=== PATIENT | female | born 1930 | race Two or more races ===

== ENCOUNTER 2019-02-18 12:31 | Emergency (ER) | payer OTHER ==
[~2019-02-18] VITALS: Ht 165.1 cm; Wt 59.0 kg
[~2019-02-18 12:31] MED LIST: ALPRAZOLAM ER0.5 MG PO; ASPIR 8181 MG PO; EFFEXOR XR75 MG PO; ENALAPRIL MALEA20 MG PO; IMDUR30 MG PO; LANTUS SOLOSTAR3 ML; LOPRESSOR5 MG/5 ML IV
[2019-02-18] MEDS ORDERED: SYNTHROID100 MCG PO (12:59)
== END 2019-02-18 17:11 | disposition home or self-care (01) ==
LOC: ER 12:31
DX: S00.03XA Contusion of scalp, initial encounter (principal); S00.12XA Contusion of left eyelid and periocular area, initial encounter; S00.11XA Contusion of right eyelid and periocular area, initial encounter; W18.09XA Striking against other object with subsequent fall, initial encounter; Y93.89 Activity, other specified; Y92.098 Other place in other non-institutional residence as the place of occurrence of the external cause; Y99.8 Other external cause status

== ENCOUNTER 2020-04-25 15:31 | Emergency (ER) | payer OTHER ==
[~2020-04-25] VITALS: Ht 160 cm; Wt 56.7 kg
[~2020-04-25 15:31] MED LIST changes: +SYNTHROID100 MCG PO
== END 2020-04-25 22:53 | disposition home or self-care (01) ==
LOC: ER 15:31
DX: S82.52XA Displaced fracture of medial malleolus of left tibia, initial encounter for closed fracture (principal); S92.412A Displaced fracture of proximal phalanx of left great toe, initial encounter for closed fracture; X50.0XXA Overexertion from strenuous movement or load, initial encounter; Y93.01 Activity, walking, marching and hiking; Y92.488 Other paved roadways as the place of occurrence of the external cause; Y99.8 Other external cause status

== ENCOUNTER 2021-05-01 18:38 | Inpatient (IN) | payer OTHER ==
[~2021-05-01] VITALS: Ht 162.6 cm; Wt 59.0 kg
[2021-05-01] MEDS ORDERED: DRAMAMINE LESS25 MG PO (18:43)
[2021-05-03] MEDS ORDERED: AMLODIPINE BESYL5 MG (08:38)
[2021-05-03] MEDS ORDERED: VITAMIN D3250 MCG (08:38)
[2021-05-17] MEDS ORDERED: AMLODIPINE BESYL5 MG PO (14:19)
[2021-05-17] MEDS ORDERED: LISINOPRIL20 MG PO (14:20)
[2021-05-17] MEDS ORDERED: ISOSORBIDE MONO30 MG PO (14:20)
[2021-05-17] MEDS ORDERED: LIPITOR40 MG PO (14:20)
[2021-05-17] MEDS ORDERED: INTESTINEX680 M1 PO (14:22)
[2021-05-17] MEDS ORDERED: LEVOTHYROXINE150 MCG PO (14:22)
[2021-05-17] MEDS ORDERED: TOPROL XL100 M1 PO (14:23)
== END 2021-05-17 20:51 | disposition home or self-care (01) | DRG 690 ==
LOC: ER 18:38 → MEDI 22:53
PROVIDERS: ADMIT Internal Medicine; ATTEND Internal Medicine
PROC: 4A12X4Z Monitoring of Cardiac Electrical Activity, External Approach (ICD-10-PCS; 2021-05-02)
PROC: BW28ZZZ Computerized Tomography (CT Scan) of Head (ICD-10-PCS; principal; 2021-05-05)
PROC: B24BZZZ Ultrasonography of Heart with Aorta (ICD-10-PCS; 2021-05-06)
PROC: CP261ZZ Tomographic (Tomo) Nuclear Medicine Imaging of Pelvis using Technetium 99m (Tc-99m) (ICD-10-PCS; 2021-05-11)
DX: N39.0 Urinary tract infection, site not specified (principal); E87.1 Hypo-osmolality and hyponatremia; N17.8 Other acute kidney failure; L03.113 Cellulitis of right upper limb; M46.28 Osteomyelitis of vertebra, sacral and sacrococcygeal region; R30.0 Dysuria; I10 Essential (primary) hypertension; E11.69 Type 2 diabetes mellitus with other specified complication; L89.159 Pressure ulcer of sacral region, unspecified stage; L08.9 Local infection of the skin and subcutaneous tissue, unspecified; B96.29 Other Escherichia coli [E. coli] as the cause of diseases classified elsewhere; B95.2 Enterococcus as the cause of diseases classified elsewhere; B96.89 Other specified bacterial agents as the cause of diseases classified elsewhere; Z79.4 Long term (current) use of insulin; E03.8 Other specified hypothyroidism; E86.0 Dehydration; D72.828 Other elevated white blood cell count; Z20.822 Contact with and (suspected) exposure to COVID-19
CPT/HCPCS: 72149

== ENCOUNTER 2021-08-27 17:39 | Inpatient (IN) | payer OTHER ==
[~2021-08-27] VITALS: Ht 165.1 cm; Wt 68.0 kg
[~2021-08-27 17:39] MED LIST changes: +AMLODIPINE BESYL5 MG; +AMLODIPINE BESYL5 MG PO; +DRAMAMINE LESS25 MG PO; +INTESTINEX680 M1 PO; +ISOSORBIDE MONO30 MG PO; +LEVOTHYROXINE150 MCG PO; +LIPITOR40 MG PO; +LISINOPRIL20 MG PO; +TOPROL XL100 M1 PO; +VITAMIN D3250 MCG
[2021-08-27] MEDS ORDERED: FENOFIBRATE160 MG (17:58)
[2021-08-27] MEDS ORDERED: AMBIEN5 MG (17:58)
[2021-08-27] MEDS ORDERED: INTESTINEX680 M1 (17:59)
[2021-08-27] MEDS ORDERED: FAMOTIDINE20 MG (17:59)
[2021-08-31] MEDS ORDERED: VITAMIN D3250 MCG (08:20)
[2021-09-17] MEDS ORDERED: TOPROL XL100 M1 PO (18:14)
[2021-09-17] MEDS ORDERED: INTESTINEX680 M1 PO (18:14)
[2021-09-17] MEDS ORDERED: AMLODIPINE BESYL5 MG PO (18:14)
[2021-09-17] MEDS ORDERED: LISINOPRIL20 MG PO (18:14)
[2021-09-17] MEDS ORDERED: LEVOFLOXACIN750 MG PO (18:14)
[2021-09-17] MEDS ORDERED: FAMOTIDINE20 MG PO (18:14)
[2021-09-17] MEDS ORDERED: ISOSORBIDE MONO30 MG PO (18:14)
[2021-09-17] MEDS ORDERED: LEVOTHYROXINE150 MCG PO (18:14)
[2021-09-17] MEDS ORDERED: LIPITOR40 MG PO (18:14)
[2021-09-17] MEDS ORDERED: INTEGRA PLUS C1 EACH PO (18:14)
== END 2021-09-17 22:04 | disposition home or self-care (01) | DRG 593 ==
LOC: ER 17:39 → MEDI 08-28 02:25 → MEDJ 08-28 17:17
PROVIDERS: ADMIT Internal Medicine; ATTEND Internal Medicine
PROC: 8E0ZXY6 Isolation (ICD-10-PCS; 2021-08-28)
PROC: 02HV33Z Insertion of Infusion Device into Superior Vena Cava, Percutaneous Approach (ICD-10-PCS; principal; 2021-09-05)
PROC: BR3CYZZ Magnetic Resonance Imaging (MRI) of Pelvis using Other Contrast (ICD-10-PCS; 2021-09-05)
PROC: BW21YZZ Computerized Tomography (CT Scan) of Abdomen and Pelvis using Other Contrast (ICD-10-PCS; 2021-09-08)
DX: L89.153 Pressure ulcer of sacral region, stage 3 (principal); L03.317 Cellulitis of buttock; M46.28 Osteomyelitis of vertebra, sacral and sacrococcygeal region; N39.0 Urinary tract infection, site not specified; B37.89 Other sites of candidiasis; L08.9 Local infection of the skin and subcutaneous tissue, unspecified; B95.2 Enterococcus as the cause of diseases classified elsewhere; B96.7 Clostridium perfringens [C. perfringens] as the cause of diseases classified elsewhere; B96.89 Other specified bacterial agents as the cause of diseases classified elsewhere; D64.9 Anemia, unspecified; I10 Essential (primary) hypertension; Z74.01 Bed confinement status; E86.0 Dehydration; E78.49 Other hyperlipidemia; E11.9 Type 2 diabetes mellitus without complications; Z79.4 Long term (current) use of insulin; I25.10 Atherosclerotic heart disease of native coronary artery without angina pectoris; E03.9 Hypothyroidism, unspecified
CPT/HCPCS: 72198